=== PATIENT | male | born 1955 | race Caucasian/White ===

== ENCOUNTER 2020-01-07 12:42 | Emergency (ER) | payer MEDICAID ==
[~2020-01-07] VITALS: Ht 170.2 cm; Wt 71.7 kg
[2020-01-07 12:48] VITALS: Ht 170.2 cm; Wt 71.7 kg
[2020-01-07 15:15] VITALS: BP 155/94
== END 2020-01-07 15:15 | disposition home or self-care (01) ==
LOC: ED 12:42
DX: S09.8XXA Other specified injuries of head, initial encounter (principal); M25.521 Pain in right elbow; R07.89 Other chest pain; W20.8XXA Other cause of strike by thrown, projected or falling object, initial encounter; Y93.89 Activity, other specified; Y92.89 Other specified places as the place of occurrence of the external cause; Y99.0 Civilian activity done for income or pay